=== PATIENT | female | born 1990 ===

== ENCOUNTER → 2018-08-12 21:58 | Outpatient (REF) | payer OTHER, SELFPAY ==
[2018-08-12 22:32] LABS: Add Manual Diff / Slide Review NO; Basophils Percent Auto 1.3 % (0-2); Eosinophils Percent Auto 2.2 % (2-4); Hematocrit 37.4 % (36-46); Hemoglobin 12.7 g/dL (12.0-16.0); Lymphocytes Percent Auto 42.4 % (25-40); Mean Corpuscular HGB Conc 33.8 % (30-36); Mean Corpuscular Volume 94.7 fL (80-100); Monocytes Percent Auto 5.4 % (3-14); Neutrophils Absolute Auto 1600 /uL (3000-5900); Neutrophils Percent Auto 48.7 % (50-75); Platelet Count 245 X10^3/uL (150-400); Red Blood Cell Count 3.95 X10^6/uL (4.0-5.2); Red Cell Distribution Width 13.1 % (11.6-14.8); White Blood Cell Count 3.2 X10^3/uL (4.5-11.0)
[2018-08-12 22:38] LABS: Iron 81 ug/dL (37-170)
[2018-08-12 22:47] LABS: Total Iron Binding Capacity 303 ug/dL (265-497)
[2018-08-12 22:54] LABS: Follicle Stimulating Hormone 5.27 mIU/mL; Luteinizing Hormone 9.02 mIU/mL
[2018-08-12 23:12] LABS: Ferritin 30.9 ng/mL (6.27-137)
[2018-08-14 20:05] LABS: Sex Hormone Binding Globulin 54 nmol/L (17-124)
[2018-08-15 15:29] LABS: Albumin 4.5 g/dL (3.6-5.1); Sex Hormone Binding Globulin 50 nmol/L (17-124); Testosterone, Bioavailable 4.9 ng/dL (0.5-8.5); Testosterone, Total 28 ng/dL (2-45); Testosterone,Free 2.4 pg/mL (0.2-5.0)
[2018-08-15 22:00] LABS: Estrogen 179.7 pg/mL
== END ==
LOC: LAB 21:58
PROVIDERS: Visit Provider Acupuncturist
DX: N94.6 Dysmenorrhea, unspecified (principal); R53.83 Other fatigue; L68.0 Hirsutism
CPT/HCPCS: 82040; 82672; 82728; 83001; 83002; 83540; 83550; 84270; 84402; 84403; 85025

== ENCOUNTER → 2018-08-27 21:30 | Outpatient (REF) | payer OTHER, SELFPAY ==
[2018-08-27 22:16] LABS: Free T3, Triiodothyronine Free 3.03 pg/mL (2.77-5.27); Vitamin D 25 Hydroxy (D3) 24.7 ng/mL (30.0-100.0)
[2018-08-27 22:30] LABS: Thyroid Stimulating Hormone 0.64 uIU/mL (0.47-4.68)
[2018-08-30 13:56] LABS: CMV IgG Antibody > 10.00 U/mL (< 0.60); CMV IgM Antibody < 30.00 AU/mL (< 30.00)
[2018-08-30 14:00] LABS: EBV Virus IgM Ab < 36.00 U/mL (< 36.00)
[2018-08-30 14:50] LABS: Progesterone 6.8 ng/mL
[2018-09-01 14:52] LABS: C.albicans IgA 0.7; C.albicans IgG 2.2; C.albicans IgM 0.4 (<1.0)
[2018-09-01 19:40] LABS: Triiodothyronine T3 Reverse 17 ng/dL (8-25)
[2018-09-05 11:12] LABS: EVB Early IgG < 9.00 U/mL (< 9.00)
== END ==
LOC: LAB 21:30
PROVIDERS: Visit Provider Acupuncturist
DX: R53.83 Other fatigue (principal); N94.6 Dysmenorrhea, unspecified; F34.1 Dysthymic disorder
CPT/HCPCS: 82306; 83090; 84144; 84443; 84481; 84482; 86628; 86644; 86645; 86663; 86664; 86665

== ENCOUNTER → 2018-10-13 21:01 | Outpatient (REF) | payer OTHER, SELFPAY ==
[2018-10-13 22:03] LABS: Vitamin D 25 Hydroxy (D3) 109 ng/mL (30.0-100.0)
[2018-10-13 22:16] LABS: Thyroid Stimulating Hormone 1.12 uIU/mL (0.47-4.68)
[2018-10-13 23:28] LABS: Free T3, Triiodothyronine Free 3.42 pg/mL (2.77-5.27)
[2018-10-16 11:10] LABS: Progesterone 20.7 ng/mL
== END ==
LOC: LAB 21:01
PROVIDERS: Visit Provider Acupuncturist
DX: R53.83 Other fatigue (principal); N94.6 Dysmenorrhea, unspecified; F34.1 Dysthymic disorder
CPT/HCPCS: 36415; 82306; 83090; 84144; 84443; 84481; 84482; 86628; 86644; 86645; 86663; 86664; 86665